=== PATIENT | male | born 1980 | race Two or more races ===

== ENCOUNTER → 2021-04-12 | Outpatient (CLI) | payer OTHER ==
[~2021-04-12] VITALS: Ht 185.4 cm; Wt 61.2 kg
[~2021-04-12] MED LIST: MORPHINE SULFATE 4 MG/ML INJ. IVP ONE; MORPHINE SULFATE 4 MG/ML INJ. ONE
--- NOTE | 2021-04-12 10:19 | RAD ---
HEPATOBILIARY SCAN WITH EJECTION FRACTION 04/12/2021 10:15 AM History: Reason: RUQ PAIN, ABD. PAIN / Spl. Instructions: 4 MG MORPHINE GIVEN IV, NO GBEF PERFORMED Procedure: Serial static images are obtained of the liver and biliary system in the frontal projectio n following IV administration of 5 mCi of Technetium 99m Choletec. The gallbladder was nonvisualized initially. The patient was administered 4 mg of morphine. Findings: There is prompt hepatic clearance of tracer from the blood pool. There is homogeneous distr ibution throughout the liver. Excretion of radiotracer into the small bowel is seen without visualizi ng the gallbladder over the first hour. Following the administration of 4 mg of morphine, gallbladder was visualized. IMPRESSION: Initial nonvisualization of the gallbladder which was visualized after morphine administr ation. Exam is negative for acute cholecystitis. Gallbladder ejection fraction cannot be measured. Electronically signed by: Kieran Benoit MD (04/12/2021 10:17 AM) [id number]
== END ==
LOC: NM 07:51
PROVIDERS: ATTEND Surgery
DX: R10.11 Right upper quadrant pain (principal)
CPT/HCPCS: 78227; A9537; J2270

== ENCOUNTER 2021-04-18 10:38 | Day surgery (SDC) | payer OTHER ==
[~2021-04-18] VITALS: Ht 185.4 cm; Wt 61.0 kg
[~2021-04-18 10:38] MED LIST changes: +BUPIVACAINE MPF 0.5% 30 ML VIAL. ONE; +HYDROmorphone 2 MG/ML VIAL IVP PRN; +IOHEXOL 300 MG/ML 50 ML VIAL. ONE; +IV RINGERS,LACTATED 1000ML 1,000 ML IV SCH; -MORPHINE SULFATE 4 MG/ML INJ. IVP ONE; -MORPHINE SULFATE 4 MG/ML INJ. ONE; +PROCHLORPERAZINE 10 MG/2 ML VIAL. IVP PRN; +SURGICEL HEMOSTAT 4X8 EACH. ONE; +ceFAZolin SODIUM IV Push 1 GM VIAL. IVP PRN; +fentaNYL PF VIAL 100 MCG/2 ML VIAL IVP PRN
[2021-04-18] MEDS ORDERED: ONDANSETRON PF 4 MG/2 ML VIAL. ONE (11:32)
[2021-04-18] MEDS ORDERED: PROPOFOL 10 MG/ML (20ML) VIAL. IV ONE (11:32)
[2021-04-18] MEDS ORDERED: DEXAMETHASONE SOD PHOS 4 MG/ML VIAL ONE (11:32)
[2021-04-18] MEDS ORDERED: fentaNYL PF VIAL 100 MCG/2 ML VIAL ONE ×2 (11:33→14:28)
[2021-04-18] MEDS ORDERED: ROCURONIUM 50 MG/5 ML VIAL. ONE (11:33)
--- NOTE | 2021-04-18 14:04 | PDOC4 ---
Operative Note Operative Note Operative Note: Preoperative Diagnosis: Acalculous cholecystitis Postoperative Diagnosis: Same Procedure: Laparoscopic cholecystectomy with intraoperative cholangiogram Surgeons: Srikanth Registered Radiologic Technologist: ALPESH Gómez, Graeme Mcclendon MS4 Anesthesia: Gen. Estimated Blood Loss: 10 mL Specimen: Gallbladder to pathology Drains: None Complications: None Indications: The patient is a 41-year-old male who was referred with abdominal pain consistent with biliary etiology. An initial sonogram was normal however HIDA scan was abnormal raising concern for a calculus cholecystitis. Surgical treatment was offered by means of a laparoscopic cholecystectomy. The risks of surgery were discussed which include bleeding, infection, bile duct injury, bile leak, pain, the potential for additional surgeries or procedures. The patient understands and would like to proceed. Description: The patient was taken to the operating room and laid supine on the operating table. General anesthesia was performed. The abdomen was prepped with ChloraPrep and draped in a standard surgical fashion. A small infraumbilical incision was made with a scalpel. The Veress needle was then inserted and a pneumoperitoneum was then created. A 5 mm trocar was then inserted and the laparoscope was introduced. In the upper midabdomen a 5 mm trocar was inserted and in the right upper quadrant two 2.3 mm mini lap graspers were inserted. The gallbladder was retracted cephalad. The cystic duct was dissected free from surrounding tissues. One clip was placed on the duct near the gallbladder junction. An opening was made in the duct and a cholangiocatheter placed within and secured with a clip. Using contrast dye and fluoroscopy an intraoperative cholangiogram was performed that appeared unremarkable. The clip and catheter were then withdrawn. Three clips were placed on the cystic duct and it was divided. The cystic artery was then identified, dissected free, doubly clipped and divided as well. The gallbladder was then mobilized away from the liver with cautery. The umbilical 5 millimeter trocar was exchanged for an 11 millimeter trocar. The gallbladder was then placed in an endoscopic bag and extracted at the umbilical trocar site. The fascia there was closed with an 0 Vicryl suture and infiltrated with 0.5% marcaine. All blood and irrigation fluid was suctioned and hemostasis was good. The remaining ports were removed and the pneumoperitoneum was relieved. The skin incisions were closed using 4-0 Monocryl suture. Steri-Strips and dressings were then applied. The patient tolerated the procedure well and was sent to the recovery room in stable condition. At the end of the case all counts were correct. ALEXIS SHEFFIELD MD Apr 18, 2021 14:04
[2021-04-18] MEDS ORDERED: OXYC-325 PO (14:07)
--- NOTE | 2021-04-18 14:08 | DISCH ---
DISCHARGE INSTRUCTIONS Condition on Discharge Condition on Discharge: Stable Activity After Discharge Activity Instructions for Disc: Other, see below (no lifting over 20 lbs X 2 weeks, no driving while taking pain meds) Diet after Discharge Diet after Discharge: Regular Wound Incision Care Wound/Incision Care: Other, see below (may remove bandaids tomorrow and shower, steristrips will fall off by themselves) Follow-Up Follow up with: Dr Sheffield in 2 weeks in office, call for appointment [phone] ALEXIS SHEFFIELD MD Apr 18, 2021 14:08
[2021-04-18] MEDS ORDERED: MIDAZOLAM HCL/PF 2 MG/2 ML VIAL. ONE (14:13)
[2021-04-18] MEDS ORDERED: MIDAZOLAM HCL/PF 2 MG/2 ML VIAL. IV PRN (14:15)
[2021-04-18] MEDS: fentaNYL PF VIAL 100 MCG/2 ML VIAL IVP PRN ×2 (14:34→14:49)
[2021-04-18] MEDS ORDERED: oxyCODONE/APAP 5/325 1 TAB TABLET PO ONE (15:00)
[2021-04-18] MEDS ORDERED: MORPHINE SULFATE 2 MG/ML INJ. ONE (15:02)
[2021-04-18] MEDS: MORPHINE SULFATE 2 MG/ML INJ. IVP PRN ×2 (15:05→15:19)
--- NOTE | 2021-04-18 15:14 | RAD ---
DG INTRAOPERATIVE CHOLANGIOGRAM 04/18/2021 1:08 PM INDICATION: Cholangiograms in OR COMPARISON: Hepatobiliary Scan 04/12/2021 TECHNIQUE: Number of images provided: 2 Fluoroscopy time: 7.1 seconds FINDINGS: Fluoroscopy is provided for intraoperative use. Contrast opacifies the intrahepatic and extrahepatic biliary tree including the cystic duct. Contrast is identified opacifying the small bowel. No definit e filling defect or stricture. IMPRESSION: 1. Intraoperative cholangiogram performed utilizing fluoroscopy. 2. Please refer to the separate operative report for further details. Electronically signed by: Dora Wen MD (04/18/2021 3:12 PM) [id number]
[2021-04-18] MEDS ORDERED: HYDROmorphone 2 MG/ML VIAL ONE (15:23)
[2021-04-18 15:34] VITALS: BP 121/77
--- NOTE | 2021-04-20 19:08 | PATHOLOGY ---
[facility] Accession Number: [id number] . 01 Material submitted: . gallbladder - GALLBLADDER AND CONTENTS . 01 Clinical history: . RUQ ABDOMINAL PAIN LAP TALON WITH LS GRAMS . 02 Diagnosis: Gallbladder, excision: - Chronic cholecystitis; negative for malignancy. (MLK:jasper; 04/20/2021) QMS 04/20/2021 1251 Local . 02 Electronically signed: . Colton Chambers MD, Pathologist NPI- [id number] . 01 Gross description: . Fixative: Formalin Labeled: Gallbladder and contents Specimen received: Previously disrupted gallbladder Dimensions: 6.2 x 2.7 x 2.4 cm Serosa: Light padilla-locke Lymph node: None identified Mucosa: Velvety and bile-stained Average wall thickness: 0.1 cm Calculi: None identified Abnormalities: None identified . A1- Machine Fancy Stitcher body, fundus, and the cystic duct margin. ([facility]; 04/19/2021) [facility] 04/19/2021 1021 Local . 02 Pathologist provided ICD-10: K81.1 . 02 CPT . 722352 Specimen Comment: A courtesy copy of this report has been sent to [phone] Specimen Comment: Report sent to Performed at: 01 [facility] [address], [place], [place] [id number] MD Frank Stevenson MD Phone: [phone] Performed at: 02 [facility] [address] [place], [place] [id number] MD Sahil Byers MD Phone: [phone]
== END 2021-04-18 16:49 | disposition home or self-care (01) ==
LOC: SURG 10:38
PROVIDERS: ATTEND Surgery
DX: K81.9 Cholecystitis, unspecified (principal); K21.9 Gastro-esophageal reflux disease without esophagitis; Z87.891 Personal history of nicotine dependence; Z79.899 Other long term (current) drug therapy; Z98.890 Other specified postprocedural states; Z91.013 Allergy to seafood; Z72.89 Other problems related to lifestyle
CPT/HCPCS: 47563; 74300; J0690; J1100; J1170; J2250; J2270; J2405; J2704; J3010; J3490; Q9967; A4213; A4364; A4452; A4657; A4930; A6219; C1887